=== PATIENT | female | born 1945 | race Hispanic/Latino ===

== ENCOUNTER → 2018-10-01 | Outpatient (CLI) | payer OTHER, MEDICARE ==
[~2018-10-01] MED LIST: AMLO5TAB9 PO; ASCO500C6 PO; ASPI-1197 PO; CHOL500051 PO; GLIP2.5T2 PO; LEVO125T11 PO; LISI10TA7 PO; MAGN250T2 PO; PROGLITAZONE PO; ZINC50TA71 PO
== END | disposition home or self-care (01) ==
LOC: RAH 10:47
PROVIDERS: ATTEND Family Medicine
DX: R92.8 Other abnormal and inconclusive findings on diagnostic imaging of breast (principal); Z85.3 Personal history of malignant neoplasm of breast
CPT/HCPCS: 77066

== ENCOUNTER 2019-07-28 01:41 | Observation (INO) | payer OTHER, MEDICARE ==
[~2019-07-28] VITALS: Ht 160 cm; Wt 103.8 kg
[2019-07-28] MEDS ORDERED: ASPIRIN 325 MG TABLET ONE (02:25)
[2019-07-28 02:29] LABS: BASOPHILS % (AUTO) 0.7 % (0.0-5.0); EOSINOPHILS % (AUTO) 3.1 % (0.0-8.0); HEMATOCRIT 34.1 % (36-48); LYMPHOCYTES % (AUTO) 37.4 % (21.0-51.0); MEAN CORPUSCULAR HEMOGLOBIN 30.5 pg (27.0-33.0); MEAN CORPUSCULAR HGB CONC 34.6 g/dL (32.0-36.0); MEAN CORPUSCULAR VOLUME 88.1 fL (79-99); MONOCYTES % (AUTO) 5.5 % (3.0-13.0); PLATELET COUNT (AUTO) 220 K/uL (130-400); RED BLOOD CELL COUNT(AUTO) 3.87 MIL/uL (4.00-5.50); RED CELL DISTRIBUTION WIDTH 12.7 % (11.0-15.5); WHITE BLOOD COUNT (AUTO) 7.1 K/uL (4.8-10.8)
[2019-07-28 02:37] LABS: POTASSIUM 3.7 mmol/L (3.5-5.1)
[2019-07-28 02:41] LABS: INR 0.96 (0.85-1.15); PARTIAL THROMBOPLASTIN TIME 23.8 SEC (26.3-35.5); PROTHROMBIN TIME 10.1 SEC (9.6-11.6)
[2019-07-28 02:42] LABS: ALBUMIN 3.3 g/dL (3.5-5.0); BILIRUBIN,TOTAL 0.4 mg/dL (0.2-1.0); TOTAL PROTEIN, SERUM 6.7 g/dL (6.0-8.3)
[2019-07-28 02:56] LABS: B-TYPE NATRIURETIC PEPTIDE 12 pg/mL (0-100)
[2019-07-28] MEDS ORDERED: LACTULOSE 20 GM/30 ML UDCUP PO PRN (04:30)
[2019-07-28] MEDS ORDERED: HYDRALAZINE HCL 20 MG/ML VIAL IV PRN (04:30)
[2019-07-28] MEDS ORDERED: GUAIFENESIN-DM 200/20 MG 10 ML PO PRN (04:30)
[2019-07-28] MEDS ORDERED: ACETAMINOPHEN 325 MG TAB PO PRN ×2 (04:30)
[2019-07-28] MEDS ORDERED: POTASSIUM CHLORIDE 20MEQ/100ML 100 ML IV PRN (04:30)
[2019-07-28] MEDS ORDERED: MAG HYDROX/AL HYDROX/SIMETH ES 30 ML SUSP UDCUP PO PRN (04:30)
[2019-07-28] MEDS ORDERED: MAGNESIUM 2GM PREMIX 50ML 50 ML IV PRN (04:30)
[2019-07-28] MEDS ORDERED: ACETAMINOPHEN-CODEINE 300/30MG TAB PO PRN (04:30)
[2019-07-28] MEDS ORDERED: MORPHINE SULFATE 2 MG/ML 1ML SYG IV PRN (04:30)
[2019-07-28] MEDS ORDERED: DIPHENHYDRAMINE HCL 25 MG CAPSULE PO PRN (04:30)
[2019-07-28] MEDS ORDERED: POTASSIUM CHLORIDE 20 MEQ ERTAB PO PRN (04:30)
[2019-07-28] MEDS ORDERED: NITROGLYCERIN 0.4 MG SL TAB SL PRN (04:30)
[2019-07-28] MEDS ORDERED: LIDOCAINE HCL-MPF 1% 2ML VIAL IM PRN (04:30)
[2019-07-28] MEDS ORDERED: ONDANSETRON HCL 4 MG/2 ML VIAL IV PRN (04:30)
[2019-07-28] MEDS ORDERED: POTASSIUM CHLORIDE 10% ELIXIR 20 MEQ/15 ML UDCUP PO PRN (04:30)
[2019-07-28] MEDS ORDERED: DiphenhydrAMINE HCL 50 MG/ML VIAL IV PRN (04:30)
[2019-07-28] MEDS ORDERED: ZOLPIDEM TARTRATE 5 MG TAB PO PRN (04:30)
[2019-07-28 05:11] LABS: CREATINE KINASE, TOTAL 65 U/L (21-232); MYOGLOBIN 31 ng/mL (10-92); TROPONIN I < 0.04 ng/mL (0.00-0.06)
[2019-07-28] MEDS: INSULIN HUMULIN R 100 UNIT/ML 3ML SQ SCH ×4 (07:30→22:15)
--- NOTE | 2019-07-28 10:05 | NUR ---
INITIAL SW met with patient. Patient lives with spouse, Oswaldo Simmons, [phone]. No home services or DME. Patient is able to complete ADL's independently and drives. PCP is Dr. Roberta Rodriguez. Pharmacy is [facility] located in [place]. DCP is home. Addendum: 07/28/19 at 1007 by AUTUMN FLORES SS Amended: Links added.
[2019-07-28] MEDS ORDERED: ASPIRIN 81MG TAB.CHEW ONE (11:29)
[2019-07-28] MEDS ORDERED: NITROGLYCERIN 1GM/1 INCH PACKET TD ONE (11:29)
[2019-07-28] MEDS ORDERED: METOPROLOL TARTRATE 25 MG TAB ONE (11:30)
[2019-07-28 16:20] VITALS: BP 146/78
[2019-07-28] MEDS ORDERED: AMLO5TAB5 PO (19:35)
[2019-07-28] MEDS ORDERED: CYAN100099 PO (19:35)
[2019-07-28 20:00] VITALS: BP 136/65
[2019-07-28] MEDS ORDERED: LEVO137T2 PO (20:13)
[2019-07-28] MEDS ORDERED: ZINC50TA15 PO (20:13)
[2019-07-28] MEDS ORDERED: CALC600T12 PO (20:13)
[2019-07-28] MEDS ORDERED: ERGO2000 PO (20:13)
[2019-07-28] MEDS ORDERED: MAGN250T10 PO (20:13)
[2019-07-28] MEDS ORDERED: ASCO10007 PO (20:13)
[2019-07-28] MEDS ORDERED: LISI10TA7 PO (20:13)
[2019-07-28] MEDS ORDERED: GLIP10TA9 PO (20:13)
[2019-07-28] MEDS ORDERED: ASPI-1197 PO (20:13)
[2019-07-28] MEDS ORDERED: OZEMPIC SQ (20:16)
[2019-07-28] MEDS: FAMOTIDINE/PF 20 MG/2 ML VIAL IV SCH (22:05)
[2019-07-28] MEDS: ZINC SULFATE 220 CAPSULE PO SCH (22:11)
[2019-07-28] MEDS: LISINOPRIL 10 MG TABLET PO SCH (22:12)
[2019-07-28] MEDS: INSULIN GLARGINE 100 UNITS/ML 10 ML VIAL SQ SCH (22:14)
[2019-07-28] MEDS: GLIPIZIDE XL 2.5MG TAB PO SCH (22:26)
[2019-07-29] VITALS: BP 127/66
[2019-07-29 04:00] VITALS: BP 154/77
[2019-07-29 05:39] LABS: HEMATOCRIT 34.7 % (36-48); MEAN CORPUSCULAR HEMOGLOBIN 30.7 pg (27.0-33.0); MEAN CORPUSCULAR HGB CONC 34.3 g/dL (32.0-36.0); MEAN CORPUSCULAR VOLUME 89.4 fL (79-99); PLATELET COUNT (AUTO) 222 K/uL (130-400); RED BLOOD CELL COUNT(AUTO) 3.88 MIL/uL (4.00-5.50); WHITE BLOOD COUNT (AUTO) 6.2 K/uL (4.8-10.8)
[2019-07-29 05:49] LABS: CREATININE 0.8 mg/dL (0.5-1.5); POTASSIUM 3.9 mmol/L (3.5-5.1)
[2019-07-29] MEDS: NITROGLYCERIN 1GM/1 INCH PACKET TD SCH ×4 (06:00→22:00)
[2019-07-29] MEDS ORDERED: NITROGLYCERIN 1GM/1 INCH PACKET TD ONE (06:11)
[2019-07-29] MEDS: INSULIN HUMULIN R 100 UNIT/ML 3ML SQ SCH ×4 (06:14→20:59)
[2019-07-29] MEDS: IPRATROPIUM/ALBUTEROL SULFATE 3 ML SOLUTION IH PRN ×2 (06:17→18:30)
[2019-07-29 06:22] LABS: CREATINE KINASE, TOTAL 66 U/L (21-232); MYOGLOBIN 49 ng/mL (10-92); TROPONIN I < 0.04 ng/mL (0.00-0.06)
[2019-07-29 07:00] VITALS: BP 135/82
--- NOTE | 2019-07-29 07:00 | NUR ---
PATIENT UPDATE Keeping npo post mn, going for a lexiscan stress test . No chest pain, no shortness of breath. 12 lead ekg done this am, chest pain panel negative, vital signs stable, running normal sinus rhythm in the 70's.
[2019-07-29] MEDS: MAGNESIUM OXIDE 400 MG TABLET PO SCH (09:00)
[2019-07-29] MEDS: LEVOTHYROXINE 125 MCG TABLET PO SCH (09:00)
[2019-07-29] MEDS: PIOGLITAZONE HCL 30 MG TAB PO SCH (09:00)
[2019-07-29] MEDS: FAMOTIDINE/PF 20 MG/2 ML VIAL IV SCH ×2 (09:00→20:53)
[2019-07-29] MEDS: ASCORBIC ACID 500 MG TAB PO SCH (09:00)
[2019-07-29] MEDS: **HM** VIT D3 5000 UNITS PO SCH (09:00)
[2019-07-29] MEDS: GLIPIZIDE XL 2.5MG TAB PO SCH ×2 (09:00→20:53)
[2019-07-29] MEDS: ASPIRIN 81 MG EC TAB PO SCH (09:21)
[2019-07-29] MEDS: AMLODIPINE BESYLATE 5 MG TAB PO SCH (09:21)
[2019-07-29] MEDS: METOPROLOL TARTRATE 25 MG TAB PO SCH ×2 (09:22→20:54)
[2019-07-29] MEDS ORDERED: REGADENOSON 0.4 MG/5 ML PF SYG IVP SCH (10:45)
[2019-07-29 11:00] VITALS: BP 137/66
[2019-07-29 16:00] VITALS: BP 137/69
[2019-07-29] MEDS: HEPARIN SODIUM 5000UNIT/ML 1ML VIAL SQ SCH (16:28)
[2019-07-29 20:00] VITALS: BP 121/67
[2019-07-29] MEDS: LISINOPRIL 10 MG TABLET PO SCH (20:54)
[2019-07-29] MEDS: ZINC SULFATE 220 CAPSULE PO SCH (20:54)
[2019-07-29] MEDS: INSULIN GLARGINE 100 UNITS/ML 10 ML VIAL SQ SCH (21:00)
[2019-07-30] VITALS: BP 120/67
[2019-07-30 04:00] VITALS: BP 114/47
[2019-07-30] MEDS: INSULIN HUMULIN R 100 UNIT/ML 3ML SQ SCH (05:53)
[2019-07-30 05:59] LABS: HEMATOCRIT 38.1 % (36-48); MEAN CORPUSCULAR HGB CONC 33.3 g/dL (32.0-36.0); MEAN CORPUSCULAR VOLUME 90.1 fL (79-99); PLATELET COUNT (AUTO) 242 K/uL (130-400); RED BLOOD CELL COUNT(AUTO) 4.23 MIL/uL (4.00-5.50); RED CELL DISTRIBUTION WIDTH 12.9 % (11.0-15.5); WHITE BLOOD COUNT (AUTO) 6.9 K/uL (4.8-10.8)
[2019-07-30] MEDS: NITROGLYCERIN 1GM/1 INCH PACKET TD SCH (05:59)
[2019-07-30 06:25] LABS: CREATININE 0.8 mg/dL (0.5-1.5); MAGNESIUM 1.9 mg/dL (1.80-2.40); PHOSPHORUS 3.4 mg/dL (2.5-4.9); POTASSIUM 4.2 mmol/L (3.5-5.1)
[2019-07-30] MEDS: IPRATROPIUM/ALBUTEROL SULFATE 3 ML SOLUTION IH PRN (07:02)
[2019-07-30 08:00] VITALS: BP 124/67
[2019-07-30] MEDS: **HM** VIT D3 5000 UNITS PO SCH (09:00)
[2019-07-30] MEDS: PIOGLITAZONE HCL 30 MG TAB PO SCH (09:34)
[2019-07-30] MEDS: ASPIRIN 81 MG EC TAB PO SCH (09:34)
[2019-07-30] MEDS: GLIPIZIDE XL 2.5MG TAB PO SCH (09:34)
[2019-07-30] MEDS: LEVOTHYROXINE 125 MCG TABLET PO SCH (09:34)
[2019-07-30] MEDS: MAGNESIUM OXIDE 400 MG TABLET PO SCH (09:35)
[2019-07-30] MEDS: AMLODIPINE BESYLATE 5 MG TAB PO SCH (09:35)
[2019-07-30] MEDS: ASCORBIC ACID 500 MG TAB PO SCH (09:35)
[2019-07-30] MEDS: METOPROLOL TARTRATE 25 MG TAB PO SCH (09:35)
[2019-07-30] MEDS: FAMOTIDINE/PF 20 MG/2 ML VIAL IV SCH (09:36)
[2019-07-30] MEDS: HEPARIN SODIUM 5000UNIT/ML 1ML VIAL SQ SCH (09:44)
--- NOTE | 2019-07-30 09:54 | NUR ---
DISCHARGE DISCHARGE INSTRUCTIONS GIVEN TO PATIENT AND HER , BOTH VERBALIZED UNDERSTANDING. NO NEW PRESCRIPTIONS GIVEN TO PATIENT. FOLLOW UP APPOINTMENTS MADE FOR SWEETIE GARCIA AND DR HICKEY. IV DISCONTINUED. SHELBY ROMERO.
== END 2019-07-30 10:30 | disposition home or self-care (01) ==
LOC: EDH 01:41 → EDHIP 04:29 → 3AH 16:20
PROVIDERS: ADMIT Internal Medicine; ATTEND Internal Medicine
DX: I25.110 Atherosclerotic heart disease of native coronary artery with unstable angina pectoris (principal); I11.9 Hypertensive heart disease without heart failure; E11.9 Type 2 diabetes mellitus without complications; E03.9 Hypothyroidism, unspecified; Z87.891 Personal history of nicotine dependence; Z88.8 Allergy status to other drugs, medicaments and biological substances
CPT/HCPCS: 36415 ×3; 71045 ×2; 78452; 80048 ×2; 80053; 82550 ×3; 82948 ×7; 83690; 83735; 83874 ×2; 83880; 84100; 84484 ×5; 85025; 85027 ×2; 85610; 85730; 93005 ×2; 93017; 93306; 94640 ×3; 94664; 96365; 96366; 96368; 96372 ×4; 96376 ×2; 99285; A9500 ×2; G0378 ×21; J1644 ×2; J1815 ×2; J2405; J2785; J3490 ×3; 96374

== ENCOUNTER → 2019-11-15 | Outpatient (CLI) | payer OTHER, MEDICARE | END | disposition home or self-care (01) | LOC: RAH 10:38 | PROVIDERS: ATTEND Family Medicine | DX: R92.1 Mammographic calcification found on diagnostic imaging of breast (principal); Z85.3 Personal history of malignant neoplasm of breast ==

== ENCOUNTER 2020-09-01 20:41 | Emergency (ER) | payer OTHER, MEDICARE ==
[~2020-09-01 20:41] MED LIST changes: +AMLO5TAB5 PO; -AMLO5TAB9 PO; +ASCO100031 PO; -ASCO500C6 PO; +CALC-1125 PO; -CHOL500051 PO; +CYAN100099 PO; +ERGO2000 PO; +GLIP10TA9 PO; -GLIP2.5T2 PO; -LEVO125T11 PO; +LEVO137T2 PO; +LISI10TA24 PO; -LISI10TA7 PO; +MAGN250T10 PO; -MAGN250T2 PO; +OZEMPIC SQ; -PROGLITAZONE PO; +ZINC50TA15 PO; -ZINC50TA71 PO
[2020-09-01] MEDS ORDERED: KETOROLAC 15MG/ML VIAL (15MG/ML) ONE ×2 (21:15→23:20)
[2020-09-01] MEDS ORDERED: HYDROCODONE/ACETAMINOPHEN 5/325 MG TAB ONE (21:16)
[2020-09-01 21:36] LABS: BASOPHILS % (AUTO) 0.5 % (0.0-5.0); EOSINOPHILS % (AUTO) 0.2 % (0.0-8.0); HEMATOCRIT 41.5 % (36-48); LYMPHOCYTES % (AUTO) 15.2 % (21.0-51.0); MEAN CORPUSCULAR HGB CONC 34.5 g/dL (32.0-36.0); MONOCYTES % (AUTO) 2.9 % (3.0-13.0); NEUTROPHILS % (AUTO) 80.7 % (40.0-77.0); PLATELET COUNT (AUTO) 324 K/uL (130-400); RED BLOOD CELL COUNT(AUTO) 4.77 MIL/uL (4.00-5.50); RED CELL DISTRIBUTION WIDTH 12.5 % (11.0-15.5); WHITE BLOOD COUNT (AUTO) 12.4 K/uL (4.8-10.8)
[2020-09-01 21:44] LABS: CREATININE 0.7 mg/dL (0.5-1.5); POTASSIUM 3.7 mmol/L (3.5-5.1)
[2020-09-01 21:48] LABS: ALBUMIN 3.9 g/dL (3.5-5.0); BILIRUBIN,TOTAL 0.6 mg/dL (0.2-1.0); CRP QUANTITATIVE 4.7 mg/L (0.00-9.0); TOTAL PROTEIN, SERUM 7.2 g/dL (6.0-8.3)
[2020-09-01] MEDS ORDERED: MORPHINE 4 MG SYG ONE (22:35)
[2020-09-01 22:40] LABS: ERYTHROCYTE SEDIMENTATION RATE 25 MM/HR (0-30)
[2020-09-01] MEDS ORDERED: LORAZEPAM 2 MG/ML 1 ML VIAL ONE (23:10)
[2020-09-01] MEDS ORDERED: DEXAMETHASONE SOD PHOSPHATE 10MG/ML 1ML VIAL ONE (23:10)
[2020-09-01] MEDS ORDERED: HYDROMORPHONE 1 MG INJ ONE (23:11)
== END 2020-09-02 03:03 | disposition home or self-care (01) ==
LOC: EDH 20:41
DX: M54.41 Lumbago with sciatica, right side (principal); E11.9 Type 2 diabetes mellitus without complications; I10 Essential (primary) hypertension; Z88.2 Allergy status to sulfonamides
CPT/HCPCS: 36415; 74176; 80053; 82550; 83605; 85025; 85651; 86140; 87040; 93971; 96374; 96375; 96376; 99285; J1100; J1170; J1885 ×2; J2060; J2270

== ENCOUNTER → 2021-08-30 | Outpatient (CLI) | payer OTHER, MEDICARE | END | disposition home or self-care (01) | LOC: RAH 12:38 | PROVIDERS: ATTEND Family Medicine | DX: N60.02 Solitary cyst of left breast (principal); Z85.3 Personal history of malignant neoplasm of breast | CPT/HCPCS: 76641; 77066 ==

== ENCOUNTER → 2021-09-12 | Outpatient (CLI) | payer OTHER, MEDICARE | END | disposition home or self-care (01) | LOC: RAH 10:04 | PROVIDERS: ATTEND Internal Medicine Gastroenterology | DX: N28.1 Cyst of kidney, acquired (principal); R10.12 Left upper quadrant pain | CPT/HCPCS: 76700 ==

== ENCOUNTER → 2022-09-02 | Outpatient (CLI) | payer OTHER, MEDICARE | END | disposition home or self-care (01) | LOC: RAH 13:46 | PROVIDERS: ATTEND Family Medicine | DX: N60.02 Solitary cyst of left breast (principal); Z85.3 Personal history of malignant neoplasm of breast; Z98.890 Other specified postprocedural states | CPT/HCPCS: 76641; 77066 ==

== ENCOUNTER → 2022-09-17 | Outpatient (CLI) | payer OTHER, MEDICARE ==
[~2022-09-17] MED LIST changes: +REGADENOSON 0.4 MG/5 ML PF SYG IVP ONE
== END | disposition home or self-care (01) ==
LOC: SHCH 08:35
PROVIDERS: ATTEND Internal Medicine Cardiovascular Disease
DX: I25.119 Atherosclerotic heart disease of native coronary artery with unspecified angina pectoris (principal); R07.9 Chest pain, unspecified
CPT/HCPCS: 78452; 93017; J2785; A9500 ×2; 96374

== ENCOUNTER → 2024-01-29 | Outpatient (CLI) | payer OTHER, MEDICARE ==
[~2024-01-29] MED LIST changes: -REGADENOSON 0.4 MG/5 ML PF SYG IVP ONE
== END | disposition home or self-care (01) ==
LOC: RAH 08:55
PROVIDERS: ATTEND Family Medicine
DX: N60.02 Solitary cyst of left breast (principal); R92.322 Mammographic fibroglandular density, left breast; R92.30 Dense breasts, unspecified; Z85.3 Personal history of malignant neoplasm of breast
CPT/HCPCS: 76641; 77066

== ENCOUNTER → 2025-02-03 | Outpatient (CLI) | payer OTHER, MEDICARE ==
[~2025-02-03] MED LIST changes: -AMLO5TAB5 PO; +AMLO5TAB6 PO; -ASCO100031 PO; +ASCO10004 PO; +CYAN-37 PO; -CYAN100099 PO; +GLIP10TA16 PO; -GLIP10TA9 PO; -ZINC50TA15 PO; +ZINC50TA84 PO
--- NOTE | 2025-02-08 09:20 | HMCIMG ---
Left BREAST ULTRASOUND: CLINICAL HISTORY: History of right breast cancer COMPARISON: Prior study from 01/29/2024 is available. Finding: Real-time examination of the [right/left] breast demonstrates homogeneous echotexture throughout the breast. The left breast has a cluster of cysts measures 0.7 x 0.5 x 0.57. The left breast at 2:00 has a small hypoechoic nodule which appears to be stable measuring 0.6 x 0.3 x 0.6 cm. There is a benign left axillary lymph node measuring 1.3 x 0.8 x 1.6 cm.. IMPRESSION: Left breast stable hypoechoic lesion at 2:00. I would recommend annual mammography with bilateral ultrasound for further evaluation.. FINAL ASSESSMENT: ACR: BI-RAD- 2. Benign: Also a negative assessment; finding(s) benign abnormalities. Management: Routine mammography screening. Likelihood of Cancer: Essentially 0% likelihood of malignancy.
--- NOTE | 2025-02-08 09:23 | HMCIMG ---
DIGITAL DIAGNOSTIC MAMMOGRAM Technique: The digital mammographic examination of both breasts in craniocaudal, mediolateral oblique views along with CAD was obtained. History: This is a 79 years year-old female 6, para2 Ab4 . . Patient has history of right breast biopsy on November 2008 with lumpectomy on January 2009 and radiation therapy in 2008. Patient has no family history of breast cancer. Patient has no complaint Reference:Prior mammogram from 01/29/2024, 09/02/2022, 09/12/2021, 08/30/2021 and 11/15/2019 are available.. Breast composition: Breast composition B: There are scattered areas of fibroglandular density. Finding: The digital mammographic examination of both breasts in craniocaudal and mediolateral oblique view along with CAD demonstrates to BE mildly heterogeneously dense. The right breast has postsurgical changes in upper outer quadrant with calcification and fibrosis.. There is no evidence of any dendritic mass, cluster microcalcification or architectural distortion. The retromammary fat appears to be normal. IMPRESSION: Unchanged from prior mammography. NO RADIOGRAPHIC EVIDENCE OF MALIGNANT CHANGES. WE WOULD RECOMMEND ANNUAL FOLLOW UP WITH TOMOSYNTHESIS UNLESS OTHERWISE CLINICALLY INDICATED. I would recommend annual bilateral breast sonogram for further evaluation. FINAL ASSESSMENT: ACR: BI-RAD- 2. Benign: Also a negative assessment; finding(s) benign abnormalities. Management: Routine mammography screening. Likelihood of Cancer: Essentially 0% likelihood of malignancy. NOTE: IF A WORK-UP OF THIS PATIENT LEADS TO A BIOPSY, PLEASE FORWARD A COPY OF THE PATHOLOGY REPORT TO OUR OFFICE REQUIRED BY [facility] EFFECTIVE MARCH 09, 1994. A NEGATIVE MAMMOGRAM SHOULD NOT PRECLUDE BIOPSY OF A CLINICALLY PALPABLE SUSPICIOUS MASS, 10% OF BREAST CANCERS ARE MAMMOGRAPHICALLY OCCULT. THIS MAMMOGRAPHY FACILITY IS FULLY ACCREDITED BY THE FOOD AND DRUG [employer]MINISTRATION (FDA). THANK YOU FOR THIS REFERRAL.
== END | disposition home or self-care (01) ==
LOC: RAH 12:47
PROVIDERS: ATTEND Family Medicine
DX: N60.02 Solitary cyst of left breast (principal); R92.323 Mammographic fibroglandular density, bilateral breasts; R59.0 Localized enlarged lymph nodes; Z85.3 Personal history of malignant neoplasm of breast
CPT/HCPCS: 76641; 77066